=== PATIENT | female | born 1985 | race Caucasian/White ===

== ENCOUNTER 2017-10-20 14:15 | Emergency (ER) | payer MEDICARE, MEDICAID ==
[2017-10-20 15:36] LABS: #Basophils 0.1 thou/uL (0.0-0.2); #Eosinphils 0.1 thou/uL (0.0-0.7); #Lymphocytes 2.7 thou/uL (1.20-3.40); #Monocytes 0.3 thou/uL (0.11-0.59); #Neutrophils 5.2 thou/uL (1.40-6.50); %Basophils 1.3 % (0.0-1.0); %Eosinophils 1.5 % (0.0-10.0); %Monocytes 3.6 % (0.0-10.0); %Neutrophils 61.6 % (42.0-75.0); Mean Corpuscular HGB CONC 33.2 g/dL (32.0-36.0); Mean Corpuscular Hemoglobin 30.9 pg (27.0-31.0); Mean Corpuscular Volume 93.1 fl (81.0-99.0); Mean Platelet Volume 7.3 fL (7.4-10.4); Platelet Count 288 thou/uL (130-400); RBC Distribution Width 13.3 % (11.5-14.5); White Blood Cell (WBC) Count 8.5 thou/uL (4.8-10.8)
[2017-10-20 15:48] LABS: BHCG - Serum Negative (NEGATIVE); Pregs Control Background? CLEAR/WHITE (CLR/WHITE); Pregs Control Bar Appear? YES (CONTROL BAR)
== END 2017-10-20 16:10 | disposition home or self-care (01) ==
LOC: ERS 14:15
DX: N93.8 Other specified abnormal uterine and vaginal bleeding (principal); F31.9 Bipolar disorder, unspecified; F17.210 Nicotine dependence, cigarettes, uncomplicated; Z79.899 Other long term (current) drug therapy
CPT/HCPCS: 36415; 84703; 85025; 99284

== ENCOUNTER 2018-05-10 17:26 | Emergency (ER) | payer MEDICARE, MEDICAID ==
[2018-05-10 18:37] LABS: #Basophils 0.1 thou/uL (0.0-0.2); #Eosinphils 0.1 thou/uL (0.0-0.7); #Lymphocytes 3.1 thou/uL (1.20-3.40); #Monocytes 0.2 thou/uL (0.11-0.59); #Neutrophils 5.8 thou/uL (1.40-6.50); %Basophils 1.2 % (0.0-1.0); %Eosinophils 1.2 % (0.0-10.0); %Lymphocytes 32.9 % (21.0-51.0); %Monocytes 2.6 % (0.0-10.0); %Neutrophils 62.1 % (42.0-75.0); Hemoglobin 13.7 g/dL (12.0-16.0); Mean Corpuscular HGB CONC 34.6 g/dL (32.0-36.0); Mean Corpuscular Hemoglobin 31.7 pg (27.0-31.0); Mean Corpuscular Volume 91.7 fL (78.0-98.0); Platelet Count 362 thou/uL (130-400); RBC Distribution Width 13.2 % (11.5-14.5); Red Blood Cell (RBC) Count 4.33 mill/uL (4.20-5.40); White Blood Cell (WBC) Count 9.3 thou/uL (4.8-10.8)
[2018-05-10 18:59] LABS: ALT (SGPT) 7 U/L (8-55); AST (SGOT) 13 U/L (5-34); Albumin 4.2 g/dL (3.5-5.0); Alkaline Phosphatase 123 U/L (40-150); Anion Gap 11 mmol/L (10-20); BUN (Urea Nitrogen) 7 mg/dL (7.0-18.7); Bilirubin, Total 0.3 mg/dL (0.2-1.2); Calc. Creatinine Clearance 0 mL/min (70-130); Calcium 9.1 mg/dL (7.8-10.44); Carbon Dioxide 27 mmol/L (22-29); Chloride 102 mmol/L (98-107); Estimated GFR-MDRD 78; Globulin 3.3 g/dL (2.4-3.5); Glucose 79 mg/dL (70-105); Lipase 5 U/L (8-78); Potassium 4.1 mmol/L (3.5-5.1); Protein, Total 7.5 g/dL (6.0-8.3); Sodium 136 mmol/L (136-145)
[2018-05-10 21:38] LABS: Bilirubin Negative (Negative); Blood, Urine Negative (Negative); Clarity CLEAR (Clear); Glucose, Urine (Dipstick) Negative (Negative); Leukocyte Negative (Negative); Nitrite Negative (Negative); Protein, Urine (Dipstick) Negative (Neg-Trace); Urobilinogen 0.2 mg/dL (0.2-1.0); pH, Urine 6.5 (5.0-9.0)
[2018-05-10 21:39] LABS: Pregnancy Test - Urine (BHCG) Negative (Negative); Pregu Control Background? CLEAR/WHITE (CLR/WHITE); Pregu Control Bar Appear? YES (CONTROL BAR)
== END 2018-05-10 22:18 | disposition home or self-care (01) ==
LOC: ERS 17:26
DX: R10.9 Unspecified abdominal pain (principal); F31.9 Bipolar disorder, unspecified; F17.210 Nicotine dependence, cigarettes, uncomplicated; Z79.899 Other long term (current) drug therapy
CPT/HCPCS: 36415; 80053; 81003; 81025; 83690; 85025; 96360

== ENCOUNTER 2019-05-27 09:42 | Emergency (ER) | payer OTHER, MEDICAID ==
--- NOTE | 2019-05-27 10:22 | RAD ---
EXAM: Chest 2 views: HISTORY: Chest pain around the Mediport COMPARISON: None. FINDINGS: There is a normal-sized cardiomediastinal silhouette. The right sided Mediport is unchanged in posit ion. There is no evidence of consolidation, mass, or pleural effusion. The bones are unremarkable. IMPRESSION: No evidence of acute cardiopulmonary disease
--- NOTE | 2019-05-27 11:27 | ULT ---
EXAM: Right upper extremity venous ultrasound HISTORY: Right shoulder pain and heaviness at the area of a Mediport COMPARISON: None TECHNIQUE: Multiplanar grayscale and color Doppler images were obtained in a right upper extremity ve nous ultrasound. Spectral analysis of the Doppler waveforms were performed. FINDINGS: The internal jugular vein demonstrates normal compression and flow without evidence of thrombus. The subclavian vein demonstrates normal flow and augmentation without evidence of thrombus. The axillary and brachial veins demonstrate normal compression, flow, and augmentation without eviden ce of thrombus. The venous structures distal to the elbow are patent without thrombus. The cephalic and basilic veins are patent. IMPRESSION: No evidence of DVT.
== END 2019-05-27 11:55 | disposition home or self-care (01) ==
LOC: ERS 09:42
DX: R07.89 Other chest pain (principal); F31.9 Bipolar disorder, unspecified; F17.210 Nicotine dependence, cigarettes, uncomplicated; Z79.899 Other long term (current) drug therapy
CPT/HCPCS: 71046

== ENCOUNTER 2019-10-29 13:36 | Outpatient (CLI) | payer MEDICARE, MEDICAID | END 2019-10-29 13:37 | disposition home or self-care (01) | LOC: ULT 13:36 | PROVIDERS: ATTEND Family Medicine | DX: I50.20 Unspecified systolic (congestive) heart failure (principal); I08.1 Rheumatic disorders of both mitral and tricuspid valves | CPT/HCPCS: 93306 ==

== ENCOUNTER 2020-06-30 14:06 | Outpatient (CLI) | payer MEDICARE, MEDICAID ==
--- NOTE | 2020-06-30 14:39 | RAD ---
EXAM: 2 views of the lumbosacral spine HISTORY: Low back pain COMPARISON: None FINDINGS: 2 views of the lumbosacral spine shows normal height and alignment of the vertebral bodies and intervertebral discs without fracture or subluxation. No significant degenerative changes are seen. The sacroiliac joints are unremarkable. Surgical clips are seen anterior to the spine. IMPRESSION: No significant lumbar spine abnormality.
--- NOTE | 2020-06-30 15:23 | RAD ---
Exam: Cervical spine 3 views HISTORY: Neck pain. COMPARISON: None FINDINGS: AP view of the cervical spine demonstrate appropriate alignment. Swimmer's view demonstrates Limited evaluation of the cervicothoracic junction. On the lateral projec tion, no prevertebral soft tissue swelling. Predental space is normal. There is straightening of normal cervical lordosis. Cervical spine vertebral body heights are maintained. No fracture. No signi ficant loss of disc space height. IMPRESSION: No radiographic abnormalities. MRI of the cervical spine, if clinically warranted.
== END 2020-06-30 14:07 | disposition home or self-care (01) ==
LOC: BICRAD 14:06
PROVIDERS: ATTEND Family Medicine
DX: M54.2 Cervicalgia (principal); M54.5 Low back pain
CPT/HCPCS: 72040; 72100

== ENCOUNTER 2020-11-05 14:50 | Outpatient (CLI) | payer MEDICARE, MEDICAID | END 2020-11-05 14:51 | disposition home or self-care (01) | LOC: BICRAD 14:50 | PROVIDERS: ATTEND Family Medicine | DX: M25.562 Pain in left knee (principal) ==

== ENCOUNTER 2021-03-11 07:20 | Outpatient (CLI) | payer MEDICARE, MEDICAID | END 2021-03-11 07:21 | disposition home or self-care (01) | LOC: ULT 07:20 | PROVIDERS: ATTEND Allergy & Immunology | DX: R74.8 Abnormal levels of other serum enzymes (principal); Z90.49 Acquired absence of other specified parts of digestive tract | CPT/HCPCS: 76705 ==

== ENCOUNTER 2021-06-26 18:46 | Inpatient (IN) | payer MEDICARE, MEDICAID ==
[2021-06-26 19:46] LABS: %Neutrophils 82.4 % (42.0-75.0); Hemoglobin 12.4 g/dL (12.0-16.0); Mean Corpuscular HGB CONC 34.5 g/dL (32.0-36.0); Mean Corpuscular Hemoglobin 34.7 pg (27.0-31.0); Mean Platelet Volume 6.1 fL (7.4-10.4); Platelet Count 429 thou/uL (130-400); RBC Distribution Width 14.5 % (11.5-14.5); Red Blood Cell (RBC) Count 3.58 mill/uL (4.20-5.40); White Blood Cell (WBC) Count 14.7 thou/uL (4.8-10.8)
[2021-06-26 19:47] LABS: #Basophils 0.1 thou/uL (0.0-0.2); #Lymphocytes 2.3 thou/uL (1.20-3.40); #Monocytes 0.2 thou/uL (0.11-0.59); #Neutrophils 12.1 thou/uL (1.40-6.50); %Basophils 0.5 % (0.0-1.0); %Eosinophils 0.3 % (0.0-10.0); %Lymphocytes 15.4 % (21.0-51.0); %Monocytes 1.4 % (0.0-10.0)
[2021-06-26] MEDS ORDERED: cefTRIAXone\\ROCEPHIN 2 GM VIAL ONE (20:16)
[2021-06-26] MEDS ORDERED: Azithromycin 500 MG VIAL ONE (20:53)
[2021-06-26] MEDS ORDERED: Ondansetron ODT 4 MG TAB PO PRN (21:22)
[2021-06-26] MEDS ORDERED: Acetaminophen 650 MG Suppository PR PRN (21:22)
[2021-06-26] MEDS ORDERED: Acetaminophen 325 MG TAB PO PRN (21:22)
[2021-06-26] MEDS ORDERED: Ondansetron PF 4 MG/2 ML Vial IVP PRN (21:22)
[2021-06-26 22:03] LABS: ALT (SGPT) Less than 7 U/L (8-55); AST (SGOT) 8 U/L (5-34); Albumin 3.2 g/dL (3.5-5.0); Alkaline Phosphatase 177 U/L (40-110); Anion Gap 12 mmol/L (10-20); BUN (Urea Nitrogen) 6 mg/dL (7.0-18.7); Bilirubin, Total 0.2 mg/dL (0.2-1.2); Calc. Creatinine Clearance 0 mL/min (70-130); Calcium 8.1 mg/dL (7.8-10.44); Carbon Dioxide 24 mmol/L (22-29); Chloride 104 mmol/L (98-107); Globulin 2.2 g/dL (2.4-3.5); Glucose 130 mg/dL (70-105); Potassium 3.1 mmol/L (3.5-5.1); Protein, Total 5.4 g/dL (6.0-8.3); Sodium 137 mmol/L (136-145)
[2021-06-26 23:34] VITALS: BMI 23.2
[2021-06-27 07:44] LABS: #Basophils 0.1 thou/uL (0.0-0.2); #Eosinphils 0.1 thou/uL (0.0-0.7); #Monocytes 0.2 thou/uL (0.11-0.59); #Neutrophils 8.4 thou/uL (1.40-6.50); %Basophils 0.8 % (0.0-1.0); %Eosinophils 0.6 % (0.0-10.0); %Lymphocytes 25.3 % (21.0-51.0); %Monocytes 1.9 % (0.0-10.0); %Neutrophils 71.4 % (42.0-75.0); Hemoglobin 11.8 g/dL (12.0-16.0); Mean Corpuscular HGB CONC 33.8 g/dL (32.0-36.0); Mean Corpuscular Hemoglobin 34.3 pg (27.0-31.0); Mean Platelet Volume 6.7 fL (7.4-10.4); Platelet Count 362 thou/uL (130-400); RBC Distribution Width 14.5 % (11.5-14.5); Red Blood Cell (RBC) Count 3.43 mill/uL (4.20-5.40); White Blood Cell (WBC) Count 11.7 thou/uL (4.8-10.8)
[2021-06-27 08:04] LABS: Anion Gap 13 mmol/L (10-20); BUN (Urea Nitrogen) 5 mg/dL (7.0-18.7); Calc. Creatinine Clearance 121 mL/min (70-130); Calcium 8.4 mg/dL (7.8-10.44); Carbon Dioxide 26 mmol/L (22-29); Chloride 105 mmol/L (98-107); Glucose 87 mg/dL (70-105); Potassium 3.2 mmol/L (3.5-5.1); Sodium 141 mmol/L (136-145)
[2021-06-27] MEDS: Potassium Chloride 20 MEQ TAB PO SCH ×2 (11:05→11:10)
[2021-06-27] MEDS ORDERED: NS 0.9% w/ 40 MEQ KCL 1,000 ML IV SCH (11:15)
[2021-06-27 15:58] LABS: Strep pneumo Urine Ag NEGATIVE (NEGATIVE)
[2021-06-27 15:59] LABS: Legionella Urinary Ag Negative (Negative)
[2021-06-27 16:54] LABS: SARS-CoV-2 PCR by NAA Not Detected (NotDetected)
[2021-06-27 18:33] LABS: Immunoglob - A (Total IgA) Less than 5.00 mg/dL (65-421)
[2021-06-27] MEDS ORDERED: Azithromycin 500 MG in Sodium Chloride 0.9% 250 ML 250 ML IVPB SCH (20:00)
[2021-06-27] MEDS ORDERED: cefTRIAXone\\ROCEPHIN 1 GM in Sodium Chloride 0.9% 100 ML IVPB SCH (20:30)
[2021-06-27] MEDS ORDERED: FLU VACC QS2021-22(6MOS UP)/PF 60 MCG/0.5 ML SYRINGE IM ONE (23:45)
[2021-06-28 08:10] VITALS: BP 129/87; TEMP 97.9
[2021-06-28 10:56] LABS: #Basophils 0.1 thou/uL (0.0-0.2); #Eosinphils 0.3 thou/uL (0.0-0.7); #Lymphocytes 2.7 thou/uL (1.20-3.40); #Monocytes 0.1 thou/uL (0.11-0.59); %Basophils 0.8 % (0.0-1.0); %Eosinophils 2.9 % (0.0-10.0); %Lymphocytes 29.2 % (21.0-51.0); %Monocytes 1.3 % (0.0-10.0); %Neutrophils 65.7 % (42.0-75.0); Hemoglobin 10.5 g/dL (12.0-16.0); Mean Corpuscular HGB CONC 34.4 g/dL (32.0-36.0); Mean Corpuscular Hemoglobin 34.6 pg (27.0-31.0); Mean Platelet Volume 6.1 fL (7.4-10.4); Platelet Count 397 thou/uL (130-400); RBC Distribution Width 14.3 % (11.5-14.5); Red Blood Cell (RBC) Count 3.04 mill/uL (4.20-5.40); White Blood Cell (WBC) Count 9.1 thou/uL (4.8-10.8)
[2021-06-28] MEDS ORDERED: Benzonatate 100 MG CAP PO PRN (11:09)
[2021-06-30 00:12] LABS: Mycoplasma pneumoniae IgG AB 120 U/mL (0-99); Mycoplasma pneumoniae IgM AB Less than 770 U/mL (0-769)
== END 2021-06-28 12:43 | disposition home or self-care (01) | DRG 871 ==
LOC: ERS 18:46 → T4-B 20:56 → OBSVTOIN 06-27 11:25
PROVIDERS: ADMIT Student in an Organized Health Care Education/Training Program; ATTEND Internal Medicine
DX: A41.9 Sepsis, unspecified organism (principal); J18.9 Pneumonia, unspecified organism; K50.90 Crohn's disease, unspecified, without complications; D84.89 Other immunodeficiencies; F17.210 Nicotine dependence, cigarettes, uncomplicated; F31.9 Bipolar disorder, unspecified; E87.6 Hypokalemia; R91.1 Solitary pulmonary nodule; Z20.822 Contact with and (suspected) exposure to COVID-19; Z88.1 Allergy status to other antibiotic agents; Z88.2 Allergy status to sulfonamides; Z88.8 Allergy status to other drugs, medicaments and biological substances; Z79.899 Other long term (current) drug therapy; Z90.49 Acquired absence of other specified parts of digestive tract; Z98.51 Tubal ligation status
CPT/HCPCS: 36415; 71045; 71250; 80048; 80053; 83605; 83880; 84484; 85025; 85379; 87040; 87449; 87899; 90471; 90686; 93005; 93306; 96365; 96375; G0008; G0378; J0456; J0696; J3480; J3490; J7050; U0003; U0005

== ENCOUNTER 2021-07-26 17:44 | Emergency (ER) | payer MEDICARE, MEDICAID | END 2021-07-26 19:08 | disposition home or self-care (01) | LOC: ERS 17:44 | DX: S90.31XA Contusion of right foot, initial encounter (principal); W10.9XXA Fall (on) (from) unspecified stairs and steps, initial encounter; F17.210 Nicotine dependence, cigarettes, uncomplicated ==

== ENCOUNTER 2021-08-05 10:53 | Outpatient (CLI) | payer MEDICARE, MEDICAID | END 2021-08-05 10:54 | disposition home or self-care (01) | LOC: BICRAD 10:53 | PROVIDERS: ATTEND Family Medicine | DX: S99.921D Unspecified injury of right foot, subsequent encounter (principal); M79.671 Pain in right foot; S92.515A Nondisplaced fracture of proximal phalanx of left lesser toe(s), initial encounter for closed fracture ==

== ENCOUNTER 2021-08-14 03:10 | Observation (INO) | payer MEDICARE, MEDICAID ==
[2021-08-14] MEDS ORDERED: Morphine 4 MG/ML VIAL ONE ×2 (03:47→06:29)
[2021-08-14] MEDS ORDERED: Ondansetron PF 4 MG/2 ML Vial ONE (03:47)
[2021-08-14 04:18] LABS: ALT (SGPT) 15 U/L (8-55); AST (SGOT) 17 U/L (5-34); Albumin 4.5 g/dL (3.5-5.0); Alkaline Phosphatase 168 U/L (40-110); Anion Gap 16 mmol/L (10-20); BUN (Urea Nitrogen) 11 mg/dL (7.0-18.7); Bilirubin, Total 0.3 mg/dL (0.2-1.2); Calc. Creatinine Clearance 0 mL/min (70-130); Calcium 9.5 mg/dL (7.8-10.44); Carbon Dioxide 24 mmol/L (22-29); Chloride 99 mmol/L (98-107); Globulin 2.7 g/dL (2.4-3.5); Glucose 161 mg/dL (70-105); Lipase 11 U/L (8-78); Potassium 3.5 mmol/L (3.5-5.1); Protein, Total 7.2 g/dL (6.0-8.3); Sodium 135 mmol/L (136-145)
[2021-08-14 04:19] LABS: #Basophils 0.1 thou/uL (0.0-0.2); #Eosinphils 0.1 thou/uL (0.0-0.7); #Monocytes 0.2 thou/uL (0.11-0.59); %Basophils 0.5 % (0.0-1.0); %Eosinophils 0.4 % (0.0-10.0); %Lymphocytes 12.8 % (21.0-51.0); %Monocytes 1.2 % (0.0-10.0); %Neutrophils 85.1 % (42.0-75.0); Hemoglobin 13.2 g/dL (12.0-16.0); Mean Corpuscular HGB CONC 34.2 g/dL (32.0-36.0); Mean Corpuscular Hemoglobin 34.7 pg (27.0-31.0); Mean Platelet Volume 6.6 fL (7.4-10.4); Platelet Count 344 thou/uL (130-400); RBC Distribution Width 14.7 % (11.5-14.5); Red Blood Cell (RBC) Count 3.81 mill/uL (4.20-5.40); White Blood Cell (WBC) Count 15.3 thou/uL (4.8-10.8)
[2021-08-14] MEDS ORDERED: Piperacillin/Tazobactam 3.375 GM VIAL ONE (06:29)
[2021-08-14] MEDS ORDERED: HYDROcodone/Acetaminophen 5/325 mg Tablet PO PRN (08:20)
[2021-08-14] MEDS ORDERED: Senokot S 8.6-50 MG TAB PO PRN (08:20)
[2021-08-14] MEDS ORDERED: Ondansetron PF 4 MG/2 ML Vial IVP PRN ×2 (08:20→08:30)
[2021-08-14] MEDS ORDERED: Acetaminophen 325 MG TAB PO PRN (08:20)
[2021-08-14] MEDS ORDERED: Guaifenesin DM 100-10/5 ML UDCUP PO PRN (08:20)
[2021-08-14 08:27] VITALS: BMI 23.8
[2021-08-14] MEDS ORDERED: Ondansetron ODT 4 MG TAB SL PRN (08:30)
[2021-08-14] MEDS ORDERED: Sodium Chloride 0.9% 1,000 ML IV SCH (08:30)
[2021-08-14] MEDS: Enoxaparin Sodium 40 MG/0.4 ML SYRINGE SC SCH (09:19)
[2021-08-14] MEDS: Famotidine/PF 20 mg/2ml Vial SLOW IVP SCH ×2 (09:20→19:49)
[2021-08-14] MEDS: Sodium Chloride 0.9% 1,000 ML IV SCH ×2 (09:24→17:26)
[2021-08-14] MEDS ORDERED: Iopamidol-370 76% 500 ML 1 ML ONE (10:21)
[2021-08-14] MEDS ORDERED: Piperacillin/Tazobactam 3.375 GM in Sodium Chloride 0.9% 100 ML IVPB SCH (11:00)
[2021-08-14 15:11] LABS: Amphetamine Not Detected (NotDetected); Barbiturates Screen Not Detected (NotDetected); Benzodiazepine Screen Not Detected (NotDetected); Cocaine Metabolite Screen Not Detected (NotDetected); Methadone Not Detected (NotDetected); Methamphetamine Not Detected (NotDetected); Opiate Screen Detected (NotDetected); Oxycodone Screen Not Detected (NotDetected); Phencyclidine (PCP) Not Detected (NotDetected); THC/Cannabinoid Screen Detected (NotDetected); Tricyclic Screen Not Detected (NotDetected)
[2021-08-14] MEDS: metroNIDAZOLE 500 MG in Premix Bag 1 BAG IVPB SCH ×2 (16:43→22:15)
[2021-08-14 18:18] LABS: SARS-CoV-2 PCR by NAA Not Detected (NotDetected)
[2021-08-14] MEDS: lamoTRIgine 100 MG TAB PO SCH (19:48)
[2021-08-14] MEDS: Venlafaxine HCl XR 75 MG CAP PO SCH (19:49)
[2021-08-14] MEDS: Ketorolac Tromethamine 30 MG/ML VIAL IVP PRN (19:49)
[2021-08-15] MEDS: metroNIDAZOLE 500 MG in Premix Bag 1 BAG IVPB SCH ×3 (05:27→22:15)
[2021-08-15 05:41] LABS: #Basophils 0.1 thou/uL (0.0-0.2); #Lymphocytes 2.2 thou/uL (1.20-3.40); #Monocytes 0.3 thou/uL (0.11-0.59); #Neutrophils 11.5 thou/uL (1.40-6.50); %Basophils 0.6 % (0.0-1.0); %Eosinophils 0.2 % (0.0-10.0); %Lymphocytes 15.4 % (21.0-51.0); %Monocytes 2.3 % (0.0-10.0); %Neutrophils 81.5 % (42.0-75.0); Hemoglobin 12.1 g/dL (12.0-16.0); Mean Corpuscular HGB CONC 33.8 g/dL (32.0-36.0); Mean Corpuscular Hemoglobin 34.6 pg (27.0-31.0); Mean Platelet Volume 6.5 fL (7.4-10.4); Platelet Count 285 thou/uL (130-400); RBC Distribution Width 14.8 % (11.5-14.5); Red Blood Cell (RBC) Count 3.49 mill/uL (4.20-5.40); White Blood Cell (WBC) Count 14.1 thou/uL (4.8-10.8)
[2021-08-15 06:11] LABS: ALT (SGPT) 37 U/L (8-55); AST (SGOT) 64 U/L (5-34); Albumin 3.9 g/dL (3.5-5.0); Alkaline Phosphatase 161 U/L (40-110); Anion Gap 12 mmol/L (10-20); BUN (Urea Nitrogen) 8 mg/dL (7.0-18.7); Bilirubin, Total 0.6 mg/dL (0.2-1.2); Calc. Creatinine Clearance 109 mL/min (70-130); Calcium 9.1 mg/dL (7.8-10.44); Carbon Dioxide 25 mmol/L (22-29); Chloride 104 mmol/L (98-107); Globulin 2.1 g/dL (2.4-3.5); Glucose 109 mg/dL (70-105); Sodium 137 mmol/L (136-145)
[2021-08-15] MEDS: Enoxaparin Sodium 40 MG/0.4 ML SYRINGE SC SCH (08:31)
[2021-08-15] MEDS: Famotidine/PF 20 mg/2ml Vial SLOW IVP SCH ×2 (08:36→20:27)
[2021-08-15] MEDS: Ketorolac Tromethamine 30 MG/ML VIAL IVP PRN ×2 (08:37→20:27)
[2021-08-15] MEDS: Piperacillin/Tazobactam 3.375 GM in Sodium Chloride 0.9% 100 ML IVPB SCH ×2 (14:01→22:15)
[2021-08-15] MEDS: Venlafaxine HCl XR 75 MG CAP PO SCH (20:36)
[2021-08-15] MEDS: lamoTRIgine 100 MG TAB PO SCH (20:37)
[2021-08-16] MEDS: metroNIDAZOLE 500 MG in Premix Bag 1 BAG IVPB SCH (05:40)
[2021-08-16] MEDS: Piperacillin/Tazobactam 3.375 GM in Sodium Chloride 0.9% 100 ML IVPB SCH (05:40)
[2021-08-16 05:55] LABS: #Basophils 0.1 thou/uL (0.0-0.2); #Eosinphils 0.1 thou/uL (0.0-0.7); #Lymphocytes 3.1 thou/uL (1.20-3.40); #Monocytes 0.4 thou/uL (0.11-0.59); #Neutrophils 8.2 thou/uL (1.40-6.50); %Eosinophils 0.9 % (0.0-10.0); %Lymphocytes 25.9 % (21.0-51.0); %Monocytes 3.5 % (0.0-10.0); %Neutrophils 68.7 % (42.0-75.0); Hemoglobin 12.4 g/dL (12.0-16.0); Mean Corpuscular HGB CONC 33.6 g/dL (32.0-36.0); Mean Corpuscular Hemoglobin 34.3 pg (27.0-31.0); Mean Platelet Volume 7.2 fL (7.4-10.4); Platelet Count 247 thou/uL (130-400); RBC Distribution Width 14.7 % (11.5-14.5); Red Blood Cell (RBC) Count 3.63 mill/uL (4.20-5.40); White Blood Cell (WBC) Count 11.9 thou/uL (4.8-10.8)
[2021-08-16 06:20] LABS: Anion Gap 14 mmol/L (10-20); BUN (Urea Nitrogen) 11 mg/dL (7.0-18.7); Calc. Creatinine Clearance 109 mL/min (70-130); Calcium 8.8 mg/dL (7.8-10.44); Carbon Dioxide 23 mmol/L (22-29); Chloride 102 mmol/L (98-107); Glucose 80 mg/dL (70-105); Potassium 3.7 mmol/L (3.5-5.1); Sodium 135 mmol/L (136-145)
[2021-08-16] MEDS: Famotidine/PF 20 mg/2ml Vial SLOW IVP SCH (08:20)
[2021-08-16] MEDS: Enoxaparin Sodium 40 MG/0.4 ML SYRINGE SC SCH (08:23)
[2021-08-16 12:00] VITALS: BP 117/79; TEMP 97
== END 2021-08-16 17:09 | disposition home or self-care (01) ==
LOC: ERS 03:10 → MSONC 06:23
PROVIDERS: ADMIT Student in an Organized Health Care Education/Training Program; ATTEND Hospitalist
DX: K52.9 Noninfective gastroenteritis and colitis, unspecified (principal); F17.210 Nicotine dependence, cigarettes, uncomplicated; F31.9 Bipolar disorder, unspecified; E86.0 Dehydration; K21.9 Gastro-esophageal reflux disease without esophagitis; D83.9 Common variable immunodeficiency, unspecified; F12.10 Cannabis abuse, uncomplicated; Z79.899 Other long term (current) drug therapy; Z88.1 Allergy status to other antibiotic agents; Z88.2 Allergy status to sulfonamides; Z88.6 Allergy status to analgesic agent; Z90.5 Acquired absence of kidney; Z20.822 Contact with and (suspected) exposure to COVID-19
CPT/HCPCS: 71275; 74174; 80048; 80053 ×2; 80306; 83690; 85025 ×3; 93005; 96366 ×2; 96375; 96376 ×3; G0378 ×4; U0003; U0005; 36415; 96374; J1885; J2270; J2405; J2543; J3490; J7050; Q9967; S0028

== ENCOUNTER 2021-09-06 12:40 | Inpatient (IN) | payer MEDICARE, MEDICAID ==
[2021-09-06 14:36] LABS: #Basophils 0.1 thou/uL (0.0-0.2); #Eosinphils 0.1 thou/uL (0.0-0.7); #Lymphocytes 2.6 thou/uL (1.20-3.40); #Monocytes 0.3 thou/uL (0.11-0.59); #Neutrophils 8.4 thou/uL (1.40-6.50); %Basophils 0.6 % (0.0-1.0); %Eosinophils 0.6 % (0.0-10.0); %Lymphocytes 22.9 % (21.0-51.0); %Monocytes 2.3 % (0.0-10.0); %Neutrophils 73.5 % (42.0-75.0); Hemoglobin 13.9 g/dL (12.0-16.0); Mean Corpuscular HGB CONC 33.6 g/dL (32.0-36.0); Mean Corpuscular Hemoglobin 33.7 pg (27.0-31.0); Mean Platelet Volume 6.8 fL (7.4-10.4); Platelet Count 388 thou/uL (130-400); RBC Distribution Width 14.3 % (11.5-14.5); Red Blood Cell (RBC) Count 4.14 mill/uL (4.20-5.40); White Blood Cell (WBC) Count 11.4 thou/uL (4.8-10.8)
[2021-09-06 14:53] LABS: ALT (SGPT) 10 U/L (8-55); AST (SGOT) 18 U/L (5-34); Albumin 4.4 g/dL (3.5-5.0); Alkaline Phosphatase 169 U/L (40-110); Anion Gap 15 mmol/L (10-20); BUN (Urea Nitrogen) 5 mg/dL (7.0-18.7); Bilirubin, Total 0.3 mg/dL (0.2-1.2); CK (CPK) 141 U/L (29-168); Calc. Creatinine Clearance 0 mL/min (70-130); Calcium 9.6 mg/dL (7.8-10.44); Carbon Dioxide 24 mmol/L (22-29); Chloride 102 mmol/L (98-107); Globulin 2.4 g/dL (2.4-3.5); Glucose 99 mg/dL (70-105); Lipase 4 U/L (8-78); Potassium 4.4 mmol/L (3.5-5.1); Protein, Total 6.8 g/dL (6.0-8.3); Sodium 137 mmol/L (136-145)
[2021-09-06 15:33] LABS: CKMB 15.3 ng/mL (0-6.6)
[2021-09-06] MEDS ORDERED: Enoxaparin Sodium 40 MG/0.4 ML SYRINGE ONE (16:15)
[2021-09-06] MEDS ORDERED: Aspirin Chewable 81 MG TAB ONE (16:15)
[2021-09-06] MEDS ORDERED: Enoxaparin Sodium 30 MG/0.3 ML SYRINGE ONE (16:15)
[2021-09-06] MEDS ORDERED: Nitroglycerin 0.4 MG TAB (25 Tab Bottle) SL PRN (18:03)
[2021-09-06] MEDS ORDERED: Acetaminophen 325 MG TAB PO PRN (18:05)
[2021-09-06] MEDS ORDERED: Ondansetron ODT 4 MG TAB PO PRN (18:05)
[2021-09-06 19:01] LABS: Troponin I 1.012 ng/mL (< 0.028)
[2021-09-06] MEDS ORDERED: Nitroglycerin 2% Ointment 1 INCH/1 GM Packet ONE (19:11)
[2021-09-06 20:30] LABS: SARS-CoV-2 NAA Rapid Test Not Detected (NotDetected)
[2021-09-06 20:46] LABS: Troponin I 1.137 ng/mL (< 0.028)
[2021-09-06 21:55] VITALS: BMI 22.9
[2021-09-06] MEDS: Famotidine 20 MG TAB PO SCH (23:59)
[2021-09-07] MEDS ORDERED: Ketorolac Tromethamine 30 MG/ML VIAL IVP SCH (01:45)
[2021-09-07 05:07] LABS: #Basophils 0.1 thou/uL (0.0-0.2); #Eosinphils 0.1 thou/uL (0.0-0.7); #Lymphocytes 3.8 thou/uL (1.20-3.40); #Monocytes 0.4 thou/uL (0.11-0.59); #Neutrophils 6.4 thou/uL (1.40-6.50); %Basophils 0.5 % (0.0-1.0); %Eosinophils 1.3 % (0.0-10.0); %Lymphocytes 35.3 % (21.0-51.0); %Monocytes 3.9 % (0.0-10.0); %Neutrophils 59.1 % (42.0-75.0); Hemoglobin 13.6 g/dL (12.0-16.0); Mean Corpuscular HGB CONC 33.3 g/dL (32.0-36.0); Mean Corpuscular Hemoglobin 33.5 pg (27.0-31.0); Mean Platelet Volume 6.9 fL (7.4-10.4); Platelet Count 352 thou/uL (130-400); RBC Distribution Width 14.3 % (11.5-14.5); Red Blood Cell (RBC) Count 4.06 mill/uL (4.20-5.40); White Blood Cell (WBC) Count 10.7 thou/uL (4.8-10.8)
[2021-09-07 05:30] LABS: Anion Gap 11 mmol/L (10-20); BUN (Urea Nitrogen) 8 mg/dL (7.0-18.7); Calc. Creatinine Clearance 100 mL/min (70-130); Calcium 9.7 mg/dL (7.8-10.44); Carbon Dioxide 28 mmol/L (22-29); Cardiac Risk 3.9 (Less than 4.5); Chloride 103 mmol/L (98-107); Cholesterol 216 mg/dl (< 200 Desired); Glucose 100 mg/dL (70-105); HDL Cholesterol 56 mg/dL (>60 Neg Risk); LDL Cholesterol, Calculated 142 mg/dL; Potassium 3.7 mmol/L (3.5-5.1); Sodium 138 mmol/L (136-145); Triglycerides 88 mg/dL (Less than 150)
[2021-09-07 06:12] LABS: Acetaminophen Less than 6.0 mcg/mL (10.0-30.0); Alcohol Less than 10 mg/dL (Less than 10); Salicylate Less than 8.0 mg/dL (15.0-30.0)
[2021-09-07] MEDS: Nitroglycerin 2% Ointment 1 INCH/1 GM Packet TOP SCH ×4 (06:13→20:53)
[2021-09-07] MEDS ORDERED: Heparin 10,000 UNITS/ 10 ML VIAL SLOW IVP SCH (08:30)
[2021-09-07] MEDS ORDERED: Heparin 25,000 units/D5W 500 ML IVPB SCH (08:30)
[2021-09-07] MEDS ORDERED: Enoxaparin Sodium 60 MG/0.6 ML SYRINGE SC SCH (09:00)
[2021-09-07] MEDS: Famotidine 20 MG TAB PO SCH ×2 (09:52→20:52)
[2021-09-07] MEDS: Folic Acid 1 MG TAB PO SCH (09:52)
[2021-09-07] MEDS: Aspirin Chewable 81 MG TAB PO SCH (09:52)
[2021-09-07] MEDS: Thiamine 100 MG TAB PO SCH (09:53)
[2021-09-07 10:30] LABS: Hemoglobin 13.7 g/dL (12.0-16.0); Platelet Count 367 thou/uL (130-400)
[2021-09-07] MEDS ORDERED: Iopamidol 370 76% 100 ML VIAL ONE (12:19)
[2021-09-07] MEDS ORDERED: Communication Order-Pharmacy FS SCH (13:30)
[2021-09-07] MEDS ORDERED: Midazolam HCl 2 mg/2 ml Vial ONE (14:08)
[2021-09-07] MEDS ORDERED: Fentanyl 100 MCG/2 ML VIAL ONE (14:08)
[2021-09-07] MEDS ORDERED: Nitroglycerin 0.4 MG TAB (25 Tab Bottle) SL PRN (14:33)
[2021-09-07] MEDS ORDERED: Acetaminophen/Codeine 30-300mg Tablet PO PRN ×2 (14:33)
[2021-09-07] MEDS ORDERED: Sodium Chloride 0.9% 200 ML IV PRN (14:33)
[2021-09-07] MEDS ORDERED: Heparin 10,000 UNITS/ 10 ML VIAL ONE (14:36)
[2021-09-07] MEDS ORDERED: Clopidogrel Bisulfate 300 MG TAB PO SCH (14:45)
[2021-09-07] MEDS ORDERED: Sodium Chloride 0.9% 1,000 ML IV SCH (14:45)
[2021-09-07] MEDS: Sodium Chloride 0.9% 1,000 ML IV SCH ×2 (15:52→23:09)
[2021-09-07] MEDS: lamoTRIgine 100 MG TAB PO SCH (20:52)
[2021-09-07] MEDS: Venlafaxine HCl XR 75 MG CAP PO SCH (20:53)
[2021-09-08] MEDS ORDERED: Ketorolac Tromethamine 30 MG/ML VIAL IVP SCH (01:45)
[2021-09-08] MEDS: Nitroglycerin 2% Ointment 1 INCH/1 GM Packet TOP SCH ×3 (06:12→21:07)
[2021-09-08 08:56] LABS: #Basophils 0.1 thou/uL (0.0-0.2); #Eosinphils 0.2 thou/uL (0.0-0.7); #Monocytes 0.4 thou/uL (0.11-0.59); %Basophils 0.9 % (0.0-1.0); %Eosinophils 1.8 % (0.0-10.0); %Monocytes 4.3 % (0.0-10.0); %Neutrophils 57.8 % (42.0-75.0); Hemoglobin 12.2 g/dL (12.0-16.0); Mean Corpuscular HGB CONC 33.4 g/dL (32.0-36.0); Mean Corpuscular Hemoglobin 33.6 pg (27.0-31.0); Platelet Count 309 thou/uL (130-400); RBC Distribution Width 14.2 % (11.5-14.5); Red Blood Cell (RBC) Count 3.64 mill/uL (4.20-5.40); White Blood Cell (WBC) Count 8.6 thou/uL (4.8-10.8)
[2021-09-08] MEDS: Thiamine 100 MG TAB PO SCH (09:12)
[2021-09-08] MEDS: Folic Acid 1 MG TAB PO SCH (09:12)
[2021-09-08] MEDS: Aspirin Chewable 81 MG TAB PO SCH (09:12)
[2021-09-08] MEDS: Famotidine 20 MG TAB PO SCH ×2 (09:13→21:07)
[2021-09-08] MEDS: Clopidogrel Bisulfate 75 MG TAB PO SCH (09:13)
[2021-09-08] MEDS: Sodium Chloride 0.9% 1,000 ML IV SCH ×2 (09:13→21:09)
[2021-09-08 09:17] LABS: Anion Gap 9 mmol/L (10-20); BUN (Urea Nitrogen) 8 mg/dL (7.0-18.7); Calc. Creatinine Clearance 108 mL/min (70-130); Calcium 8.7 mg/dL (7.8-10.44); Carbon Dioxide 25 mmol/L (22-29); Chloride 107 mmol/L (98-107); Glucose 87 mg/dL (70-105); Potassium 3.9 mmol/L (3.5-5.1); Sodium 137 mmol/L (136-145)
[2021-09-08] MEDS ORDERED: Atorvastatin Calcium 20 MG TAB PO SCH (21:00)
[2021-09-08] MEDS: lamoTRIgine 100 MG TAB PO SCH (21:06)
[2021-09-08] MEDS: Venlafaxine HCl XR 75 MG CAP PO SCH (21:07)
[2021-09-09] MEDS: Sodium Chloride 0.9% 1,000 ML IV SCH ×2 (05:30→17:04)
[2021-09-09] MEDS: Nitroglycerin 2% Ointment 1 INCH/1 GM Packet TOP SCH ×2 (05:31→17:04)
[2021-09-09 09:06] LABS: #Eosinphils 0.2 thou/uL (0.0-0.7); #Monocytes 0.4 thou/uL (0.11-0.59); #Neutrophils 5.8 thou/uL (1.40-6.50); %Basophils 0.4 % (0.0-1.0); %Eosinophils 2.1 % (0.0-10.0); %Lymphocytes 31.8 % (21.0-51.0); %Neutrophils 61.8 % (42.0-75.0); Hemoglobin 11.7 g/dL (12.0-16.0); Mean Corpuscular HGB CONC 34.1 g/dL (32.0-36.0); Mean Corpuscular Hemoglobin 34.6 pg (27.0-31.0); Platelet Count 299 thou/uL (130-400); RBC Distribution Width 14.2 % (11.5-14.5); Red Blood Cell (RBC) Count 3.38 mill/uL (4.20-5.40); White Blood Cell (WBC) Count 9.4 thou/uL (4.8-10.8)
[2021-09-09 09:30] LABS: Anion Gap 13 mmol/L (10-20); BUN (Urea Nitrogen) 6 mg/dL (7.0-18.7); Calc. Creatinine Clearance 112 mL/min (70-130); Calcium 8.8 mg/dL (7.8-10.44); Carbon Dioxide 22 mmol/L (22-29); Chloride 107 mmol/L (98-107); Glucose 97 mg/dL (70-105); Potassium 3.9 mmol/L (3.5-5.1); Sodium 138 mmol/L (136-145)
[2021-09-09] MEDS: Famotidine 20 MG TAB PO SCH (09:50)
[2021-09-09] MEDS: Aspirin Chewable 81 MG TAB PO SCH (09:50)
[2021-09-09] MEDS: Thiamine 100 MG TAB PO SCH (09:50)
[2021-09-09] MEDS: Clopidogrel Bisulfate 75 MG TAB PO SCH (09:50)
[2021-09-09] MEDS: Folic Acid 1 MG TAB PO SCH (09:50)
[2021-09-09 17:03] VITALS: BP 102/65; TEMP 98
== END 2021-09-09 17:14 | disposition home or self-care (01) | DRG 280 ==
LOC: ERS 12:40 → 2NO 16:07 → OBSVTOIN 09-07 10:03
PROVIDERS: ADMIT Internal Medicine; ATTEND Hospitalist
PROC: 4A023N7 Measurement of Cardiac Sampling and Pressure, Left Heart, Percutaneous Approach (ICD-10-PCS; principal; 2021-09-07)
PROC: B2111ZZ Fluoroscopy of Multiple Coronary Arteries using Low Osmolar Contrast (ICD-10-PCS; 2021-09-07)
PROC: B2151ZZ Fluoroscopy of Left Heart using Low Osmolar Contrast (ICD-10-PCS; 2021-09-07)
DX: I21.4 Non-ST elevation (NSTEMI) myocardial infarction (principal); I25.42 Coronary artery dissection; K51.90 Ulcerative colitis, unspecified, without complications; F31.9 Bipolar disorder, unspecified; F17.210 Nicotine dependence, cigarettes, uncomplicated; I25.10 Atherosclerotic heart disease of native coronary artery without angina pectoris; Z20.822 Contact with and (suspected) exposure to COVID-19; Z88.1 Allergy status to other antibiotic agents; Z88.2 Allergy status to sulfonamides; Z88.8 Allergy status to other drugs, medicaments and biological substances; Z79.899 Other long term (current) drug therapy; Z90.49 Acquired absence of other specified parts of digestive tract; Z98.51 Tubal ligation status
CPT/HCPCS: 36415; 71045; 80048; 80053; 80061; 80307; 82550; 82553; 83690; 83735; 84443; 84484; 85025; 85347; 85379; 85730; 93005; 93306; 93458; 94760; 96372; 96374; 99152; G0378; J1644; J1650; J1885; J2250; J3010; J7050; Q0162; Q9967; U0002

== ENCOUNTER 2022-01-11 10:18 | Outpatient (CLI) | payer MEDICARE, MEDICAID | END 2022-01-11 10:19 | disposition home or self-care (01) | LOC: TBSIIMAG 10:18 | PROVIDERS: ATTEND Family Medicine | DX: M23.92 Unspecified internal derangement of left knee (principal); M23.042 Cystic meniscus, anterior horn of lateral meniscus, left knee; M25.862 Other specified joint disorders, left knee ==

== ENCOUNTER 2022-04-25 09:56 | Outpatient (CLI) | payer MEDICARE, MEDICAID ==
[2022-04-25 11:14] LABS: Prothrombin Time 10.9 sec (9.5-12.1)
[2022-04-25 11:15] LABS: Anion Gap 13 mmol/L (10-20); BUN (Urea Nitrogen) 7 mg/dL (7.0-18.7); Calc. Creatinine Clearance 0 mL/min (70-130); Calcium 9.4 mg/dL (7.8-10.44); Carbon Dioxide 29 mmol/L (22-29); Chloride 100 mmol/L (98-107); Estimated GFR 98; Glucose 82 mg/dL (70-105); Potassium 3.6 mmol/L (3.5-5.1); Sodium 138 mmol/L (136-145)
[2022-04-25 11:19] LABS: #Eosinphils 0.1 10x3/uL (0.0-0.5); #Monocytes 0.2 10x3/uL (0.0-1.1); #Neutrophils 5.2 10x3/uL (1.5-8.4); %Basophils 0.5 % (0.0-2.0); %Eosinophils 1.3 % (0.0-6.0); %Lymphocytes 33.7 % (18.0-47.0); %Monocytes 2.6 % (0.0-10.0); %Neutrophils 60.7 % (40.0-75.0); Hemoglobin 12.9 g/dL (12.0-15.5); Mean Corpuscular HGB CONC 33.7 g/dL (32.0-36.0); Mean Corpuscular Hemoglobin 31.2 pg (27.0-33.0); Mean Corpuscular Volume 92.7 fl (81.6-98.3); Mean Platelet Volume 9.1 fl (7.4-10.4); Platelet Count 339 10x3/uL (150-450); RBC Distribution Width 15.2 % (11.5-14.5); Red Blood Cell (RBC) Count 4.13 10x6/uL (3.90-5.03); White Blood Cell (WBC) Count 8.6 10x3/uL (3.5-10.5)
== END 2022-04-25 09:57 | disposition home or self-care (01) ==
LOC: LABBT 09:56
PROVIDERS: ATTEND Orthopaedic Surgery
DX: Z01.812 Encounter for preprocedural laboratory examination (principal); M23.007 Cystic meniscus, unspecified meniscus, left knee; Z20.822 Contact with and (suspected) exposure to COVID-19
CPT/HCPCS: 80048; 85025; 85610; 87811

== ENCOUNTER 2022-12-31 10:49 | Emergency (ER) | payer MEDICARE, MEDICAID ==
[2022-12-31 13:16] LABS: #Basophils 0.1 thou/uL (0.0-0.2); #Eosinphils 0.1 thou/uL (0.0-0.7); #Lymphocytes 2.2 thou/uL (1.20-3.40); #Monocytes 0.2 thou/uL (0.11-0.59); #Neutrophils 3.9 thou/uL (1.40-6.50); %Basophils 1.1 % (0.0-1.0); %Lymphocytes 34.1 % (21.0-51.0); %Monocytes 2.5 % (0.0-10.0); %Neutrophils 61.3 % (42.0-75.0); Hemoglobin 12.9 g/dL (12.0-16.0); Mean Corpuscular HGB CONC 34.8 g/dL (32.0-36.0); Mean Corpuscular Hemoglobin 34.5 pg (27.0-31.0); Mean Corpuscular Volume 98.9 fl (78.0-98.0); Mean Platelet Volume 7.2 fL (7.4-10.4); Platelet Count 315 10x3/uL (130-400); RBC Distribution Width 12.8 % (11.5-14.5); Red Blood Cell (RBC) Count 3.74 mill/uL (4.20-5.40); White Blood Cell (WBC) Count 6.4 10x3/uL (4.8-10.8)
[2022-12-31 13:30] LABS: BHCG - Serum Negative (NEGATIVE); Pregs Control Background? CLEAR/WHITE (CLR/WHITE); Pregs Control Bar Appear? YES (CONTROL BAR)
[2022-12-31 13:50] LABS: ALT (SGPT) 9 U/L (8-55); AST (SGOT) 15 U/L (5-34); Albumin 3.6 g/dL (3.5-5.0); Alkaline Phosphatase 150 U/L (40-110); Anion Gap 11 mmol/L (10-20); BUN (Urea Nitrogen) 7 mg/dL (7.0-18.7); Bilirubin, Total 0.3 mg/dL (0.2-1.2); Calc. Creatinine Clearance 0 mL/min (70-130); Calcium 8.5 mg/dL (7.8-10.44); Carbon Dioxide 24 mmol/L (22-29); Chloride 104 mmol/L (98-107); Estimated GFR 104; Globulin 3.8 g/dL (2.4-3.5); Glucose 89 mg/dL (70-105); Lipase 11 U/L (8-78); Potassium 4.3 mmol/L (3.5-5.1); Protein, Total 7.4 g/dL (6.0-8.3); Sodium 135 mmol/L (136-145)
[2022-12-31] MEDS ORDERED: Ketorolac Tromethamine 30 MG/ML VIAL ONE (13:58)
== END 2022-12-31 15:16 | disposition home or self-care (01) ==
LOC: ERS 10:49
DX: M79.662 Pain in left lower leg (principal); M62.838 Other muscle spasm; Z87.891 Personal history of nicotine dependence
CPT/HCPCS: 71045; 80053; 83690; 83880; 84484; 84703; 85025; 93005; 96372; J1885

== ENCOUNTER 2023-03-13 20:06 | Emergency (ER) | payer MEDICARE, MEDICAID ==
[2023-03-13 21:09] LABS: #Eosinphils 0.1 thou/uL (0.0-0.7); #Monocytes 0.2 thou/uL (0.11-0.59); #Neutrophils 5.4 thou/uL (1.40-6.50); %Basophils 0.5 % (0.0-1.0); %Eosinophils 0.8 % (0.0-10.0); %Lymphocytes 32.4 % (21.0-51.0); %Monocytes 2.6 % (0.0-10.0); %Neutrophils 62.9 % (42.0-75.0); Hemoglobin 12.5 g/dL (12.0-16.0); Mean Corpuscular HGB CONC 33.7 g/dL (32.0-36.0); Mean Corpuscular Hemoglobin 32.9 pg (27.0-31.0); Mean Corpuscular Volume 97.6 fl (78.0-98.0); Mean Platelet Volume 9.3 fL (7.4-10.4); Platelet Count 334 10x3/uL (130-400); White Blood Cell (WBC) Count 8.6 10x3/uL (4.8-10.8)
[2023-03-13 21:32] LABS: ALT (SGPT) 13 U/L (8-55); AST (SGOT) 18 U/L (5-34); Albumin 3.9 g/dL (3.5-5.0); Alkaline Phosphatase 165 U/L (40-110); Anion Gap 13 mmol/L (10-20); BUN (Urea Nitrogen) 9 mg/dL (7.0-18.7); Bilirubin, Total 0.2 mg/dL (0.2-1.2); Calc. Creatinine Clearance 0 mL/min (70-130); Calcium 9.1 mg/dL (7.8-10.44); Carbon Dioxide 26 mmol/L (22-29); Chloride 100 mmol/L (98-107); Estimated GFR 91; Globulin 3.7 g/dL (2.4-3.5); Glucose 107 mg/dL (70-105); Potassium 3.6 mmol/L (3.5-5.1); Protein, Total 7.6 g/dL (6.0-8.3); Sodium 135 mmol/L (136-145)
[2023-03-14] MEDS ORDERED: Mag-Al 1200 mg/1200 mg/30 ML UDCUP ONE (00:18)
[2023-03-14] MEDS ORDERED: Aspirin 325 MG TAB ONE (00:18)
[2023-03-14] MEDS ORDERED: Acetaminophen 500 MG TAB ONE (00:18)
== END 2023-03-14 02:02 | disposition home or self-care (01) ==
LOC: ERS 20:06
DX: R07.89 Other chest pain (principal)
CPT/HCPCS: 36415; 71045; 80053; 84484; 85025; 93005; 94760

== ENCOUNTER 2023-07-17 07:52 | Outpatient (CLI) | payer MEDICARE, MEDICAID | END 2023-07-17 07:53 | disposition home or self-care (01) | LOC: ULT 07:52 | PROVIDERS: ATTEND Family Medicine | DX: N83.291 Other ovarian cyst, right side (principal) | CPT/HCPCS: 76856 ==

== ENCOUNTER 2023-07-20 07:27 | Outpatient (CLI) | payer MEDICARE, MEDICAID | END 2023-07-20 07:28 | disposition home or self-care (01) | LOC: SCSMRI 07:27 | PROVIDERS: ATTEND Family Medicine | DX: D35.2 Benign neoplasm of pituitary gland (principal); E23.6 Other disorders of pituitary gland | CPT/HCPCS: 70553 ==

== ENCOUNTER 2023-08-21 08:59 | Outpatient (CLI) | payer MEDICARE | END 2023-08-21 09:00 | disposition home or self-care (01) | LOC: ULT 08:59 | PROVIDERS: ATTEND Family Medicine | DX: R74.8 Abnormal levels of other serum enzymes (principal) | CPT/HCPCS: 76705 ==

== ENCOUNTER 2024-02-25 18:34 | Inpatient (IN) | payer MEDICARE, MEDICAID ==
[~2024-02-25 18:34] MED LIST: Iopamidol 370 76% 100 ML VIAL ONE
[2024-02-25 19:02] LABS: #Basophils 0.03 10x3/uL (0.0-0.2); %Basophils 0.4 % (0.0-1.0); %Lymphocytes 41.7 % (21.0-51.0); %Monocytes 3.1 % (0.0-10.0); %Neutrophils 53.3 % (42.0-75.0); Hematocrit 40.3 % (36.0-47.0); Mean Corpuscular HGB CONC 34.7 g/dL (32.0-36.0); Mean Corpuscular Hemoglobin 31.7 pg (27.0-31.0); Mean Corpuscular Volume 91.2 fL (78.0-98.0); Mean Platelet Volume 9.5 fL (7.4-10.4); Platelet Count 335 10x3/uL (130-400); RBC Distribution Width 13.6 % (11.5-14.5); Red Blood Cell (RBC) Count 4.42 mill/uL (4.20-5.40)
[2024-02-25 19:10] LABS: BHCG - Serum Negative (NEGATIVE); Pregs Control Background? CLEAR/WHITE (CLR/WHITE); Pregs Control Bar Appear? YES (CONTROL BAR)
[2024-02-25 19:18] LABS: ALT (SGPT) 16 U/L (8-55); AST (SGOT) 22 U/L (5-34); Albumin 3.6 g/dL (3.5-5.0); Alkaline Phosphatase 145 U/L (40-110); Anion Gap 16 mmol/L (10-20); BUN (Urea Nitrogen) 8 mg/dL (7.0-18.7); Bilirubin, Total 0.3 mg/dL (0.2-1.2); Calc. Creatinine Clearance 0 mL/min (70-130); Calcium 8.8 mg/dL (7.8-10.44); Carbon Dioxide 21 mmol/L (22-29); Chloride 104 mmol/L (98-107); Estimated GFR 89; Globulin 4.2 g/dL (2.4-3.5); Glucose 101 mg/dL (70-105); Lipase 14 U/L (8-78); Potassium 3.7 mmol/L (3.5-5.1); Protein, Total 7.8 g/dL (6.0-8.3); Sodium 137 mmol/L (136-145)
[2024-02-25 19:21] LABS: Troponin I Less than 0.010 ng/mL (< 0.028)
[2024-02-25 19:40] LABS: PTT 25.7 sec (22.9-36.1); Prothrombin Time 13.3 sec (12.0-14.7)
[2024-02-25] MEDS ORDERED: Aspirin Chewable 81 MG TAB ONE (19:40)
[2024-02-25] MEDS ORDERED: Ondansetron ODT 4 MG TAB SL PRN (21:00)
[2024-02-25] MEDS ORDERED: Ondansetron PF 4 MG/2 ML Vial IVP PRN (21:00)
[2024-02-25] MEDS ORDERED: hydrALAZINE 20 MG/ML VIAL SLOW IVP PRN (21:22)
[2024-02-25] MEDS ORDERED: Acetaminophen 650 MG Suppository PR PRN (21:22)
[2024-02-26 03:46] VITALS: BMI 24.8
[2024-02-26 05:12] LABS: #Basophils 0.03 10x3/uL (0.0-0.2); %Basophils 0.4 % (0.0-1.0); %Eosinophils 1.1 % (0.0-10.0); %Monocytes 3.1 % (0.0-10.0); Hemoglobin 12.5 g/dL (12.0-16.0); Mean Corpuscular HGB CONC 33.8 g/dL (32.0-36.0); Mean Corpuscular Hemoglobin 31.8 pg (27.0-31.0); Mean Corpuscular Volume 94.1 fL (78.0-98.0); Mean Platelet Volume 9.7 fL (7.4-10.4); Platelet Count 294 10x3/uL (130-400); Red Blood Cell (RBC) Count 3.93 mill/uL (4.20-5.40)
[2024-02-26 05:26] LABS: Hemoglobin A1c 4.5 % (4.0-6.0)
[2024-02-26 05:38] LABS: Anion Gap 11 mmol/L (10-20); BUN (Urea Nitrogen) 7 mg/dL (7.0-18.7); Calc. Creatinine Clearance 99 mL/min (70-130); Calcium 8.4 mg/dL (7.8-10.44); Carbon Dioxide 26 mmol/L (22-29); Cardiac Risk 4.8 (Less than 4.5); Chloride 107 mmol/L (98-107); Cholesterol 163 mg/dl (< 200 Desired); Estimated GFR 105; Glucose 92 mg/dL (70-105); HDL Cholesterol 34 mg/dL (>60 Neg Risk); LDL Cholesterol, Calculated 106 mg/dL; Potassium 3.8 mmol/L (3.5-5.1); Sodium 140 mmol/L (136-145); Triglycerides 115 mg/dL (Less than 150)
[2024-02-26] MEDS ORDERED: Aspirin 325 MG TAB ONE (08:52)
[2024-02-26] MEDS: Aspirin 325 MG TAB PO SCH (09:40)
[2024-02-26] MEDS ORDERED: Clopidogrel Bisulfate 75 MG TAB ONE (13:28)
[2024-02-26] MEDS: Clopidogrel Bisulfate 75 MG TAB PO SCH (13:31)
[2024-02-26 15:00] LABS: PTT 25.1 sec (22.9-36.1); Prothrombin Time 13.5 sec (12.0-14.7)
[2024-02-26 15:02] LABS: D-Dimer Test 0.27 mcg/mL (0.27-0.43)
[2024-02-27] MEDS: Acetaminophen 325 MG TAB PO PRN (07:38)
[2024-02-27] MEDS: Clopidogrel Bisulfate 75 MG TAB PO SCH (08:34)
[2024-02-27 12:39] VITALS: BP 108/72; TEMP 98.7
[2024-02-27 12:49] LABS: Cardiolipin IgA Ab Less than 0.3 APL-U/mL (<14 Negative); Cardiolipin IgG Ab 4.7 GPL-U/mL (<10 Negative); Cardiolipin IgM Ab Less than 0.9 MPL-U/mL (<10 Negative); EliA APS New Method **** NEW METHOD ****
[2024-02-27] MEDS ORDERED: Atorvastatin Calcium 40 MG TAB PO SCH (21:00)
== END 2024-02-27 13:30 | disposition home or self-care (01) | DRG 65 ==
LOC: ERS 18:34 → ERHOLD 20:39 → 2SE 02-26 13:41
PROVIDERS: ADMIT Student in an Organized Health Care Education/Training Program; ATTEND Internal Medicine
DX: I63.9 Cerebral infarction, unspecified (principal); D83.9 Common variable immunodeficiency, unspecified; G81.94 Hemiplegia, unspecified affecting left nondominant side; I25.10 Atherosclerotic heart disease of native coronary artery without angina pectoris; E78.5 Hyperlipidemia, unspecified; Z88.2 Allergy status to sulfonamides; Z88.8 Allergy status to other drugs, medicaments and biological substances; Z79.899 Other long term (current) drug therapy; Z79.82 Long term (current) use of aspirin; Z98.51 Tubal ligation status; Z98.890 Other specified postprocedural states; Z90.49 Acquired absence of other specified parts of digestive tract; I25.2 Old myocardial infarction
CPT/HCPCS: 0042T; 36415; 36416; 70450; 70496; 70498; 70551; 71045; 80048; 80053; 80061; 83036; 83090; 83690; 84443; 84484; 84703; 85025; 85300; 85303; 85305; 85307; 85598; 85610; 85730; 86147; 93005; 93010; 93306; 94760; Q9967

== ENCOUNTER 2024-03-12 12:33 | Day surgery (SDC) | payer MEDICARE, MEDICAID ==
[~2024-03-12 12:33] MED LIST changes: +ADMIXTURE FEE IVPB SCH; +EPINEPHrine 1 MG/ML AMP IM PRN; +GAMMAGARD IVPB SCH; +IMMUNE GLOBULIN IVPB SCH; -Iopamidol 370 76% 100 ML VIAL ONE; +Privigen 40 GM, Privigen 10 GM in Admixture Fee 1 EACH IVPB SCH; +Sodium Chloride 0.9% 1,000 ML IV PRN; +Sodium Chloride 0.9% 1,000 ML IV SCH; +Sodium Chloride 0.9% 500 ML IV PRN; +diphenhydrAMINE 50 MG/ML VIAL IVP PRN
[2024-03-12] MEDS ORDERED: EPINEPHrine 1 MG/ML AMP IM PRN (12:41)
[2024-03-12] MEDS ORDERED: Sodium Chloride 0.9% 1,000 ML IV PRN (12:41)
[2024-03-12] MEDS ORDERED: diphenhydrAMINE 50 MG/ML VIAL ONE (12:58)
[2024-03-12] MEDS: Sodium Chloride 0.9% 1,000 ML IV SCH (12:59)
[2024-03-12] MEDS: diphenhydrAMINE 50 MG/ML VIAL IVP PRN (13:00)
[2024-03-12] MEDS: IMMUNE GLOBULIN IVPB SCH (13:21)
[2024-03-12] MEDS: GAMMAGARD IVPB SCH (13:21)
[2024-03-12] MEDS: ADMIXTURE FEE IVPB SCH (13:21)
[2024-03-12 18:03] VITALS: BP 105/55; TEMP 98.7
== END 2024-03-12 18:04 | disposition home or self-care (01) ==
LOC: ONC/OP 12:33
PROVIDERS: ATTEND Allergy & Immunology
DX: D83.9 Common variable immunodeficiency, unspecified (principal)
CPT/HCPCS: 96365; 96366; J1200; J1569 ×2; J1642

== ENCOUNTER 2024-05-30 08:54 | Day surgery (SDC) | payer MEDICARE, MEDICAID ==
[~2024-05-30 08:54] MED LIST changes: -ADMIXTURE FEE IVPB SCH; +EPINEPHrine 1 MG/ML VIAL IJ PRN; -GAMMAGARD IVPB SCH; -IMMUNE GLOBULIN IVPB SCH; -Privigen 40 GM, Privigen 10 GM in Admixture Fee 1 EACH IVPB SCH; -Sodium Chloride 0.9% 500 ML IV PRN
[2024-05-30 09:42] LABS: #Basophils 0.04 10x3/uL (0.0-0.2); %Basophils 0.5 % (0.0-1.0); %Eosinophils 1.1 % (0.0-10.0); %Lymphocytes 26.9 % (21.0-51.0); %Monocytes 2.4 % (0.0-10.0); %Neutrophils 68.4 % (42.0-75.0); Hematocrit 36.1 % (36.0-47.0); Mean Corpuscular HGB CONC 33.2 g/dL (32.0-36.0); Mean Corpuscular Hemoglobin 31.7 pg (27.0-31.0); Mean Corpuscular Volume 95.3 fL (78.0-98.0); Mean Platelet Volume 9.8 fL (7.4-10.4); Platelet Count 266 10x3/uL (130-400); RBC Distribution Width 14.3 % (11.5-14.5); Red Blood Cell (RBC) Count 3.79 mill/uL (4.20-5.40)
[2024-05-30] MEDS: Privigen 40 GM, Privigen 10 GM in Admixture Fee 1 EACH IVPB SCH (10:04)
[2024-05-30 15:04] VITALS: BP 99/62; TEMP 97.9
== END 2024-05-30 14:58 | disposition home or self-care (01) ==
LOC: ONC/OP 08:54
PROVIDERS: ATTEND Allergy & Immunology
DX: D83.9 Common variable immunodeficiency, unspecified (principal); Z88.2 Allergy status to sulfonamides; Z88.1 Allergy status to other antibiotic agents; Z88.6 Allergy status to analgesic agent
CPT/HCPCS: 82784; 85025; 96365; 96366; J1459 ×2; J1642

== ENCOUNTER 2024-06-27 08:37 | Day surgery (SDC) | payer MEDICARE, MEDICAID ==
[~2024-06-27 08:37] MED LIST changes: -EPINEPHrine 1 MG/ML VIAL IJ PRN; -Sodium Chloride 0.9% 1,000 ML IV SCH
[2024-06-27] MEDS: Sodium Chloride 0.9% 1,000 ML IV SCH (08:53)
[2024-06-27] MEDS: Privigen 40 GM, Privigen 10 GM in Admixture Fee 1 EACH IVPB SCH (09:15)
[2024-06-27 15:16] VITALS: BP 110/53; TEMP 98.1
== END 2024-06-27 15:16 | disposition home or self-care (01) ==
LOC: ONC/OP 08:37
PROVIDERS: ATTEND Allergy & Immunology
DX: D83.9 Common variable immunodeficiency, unspecified (principal); K21.9 Gastro-esophageal reflux disease without esophagitis; Z88.2 Allergy status to sulfonamides; Z88.1 Allergy status to other antibiotic agents; Z88.6 Allergy status to analgesic agent
CPT/HCPCS: 96361; 96365; 96366; J1459 ×2; J1642

== ENCOUNTER 2024-07-17 09:19 | Day surgery (SDC) | payer MEDICAID, MEDICARE ==
[2024-07-17] MEDS ORDERED: EPINEPHrine 1 MG/ML VIAL IJ SCH (09:30)
[2024-07-17] MEDS ORDERED: diphenhydrAMINE 50 MG/ML VIAL IVP SCH (09:30)
[2024-07-17] MEDS: Sodium Chloride 0.9% 500 ML IV SCH (09:50)
[2024-07-17] MEDS: PRIVIGEN IVPB SCH (10:21)
[2024-07-17] MEDS: ADMIXTURE FEE IVPB SCH (10:21)
[2024-07-17 13:35] VITALS: BP 102/59; TEMP 98.1
== END 2024-07-17 15:31 | disposition home or self-care (01) ==
LOC: ONC/OP 09:19
PROVIDERS: ATTEND Allergy & Immunology
DX: D83.9 Common variable immunodeficiency, unspecified (principal); Z88.1 Allergy status to other antibiotic agents; Z88.2 Allergy status to sulfonamides; Z88.6 Allergy status to analgesic agent
CPT/HCPCS: 96365; 96366; J1459 ×2; J1642

== ENCOUNTER 2024-08-07 09:29 | Day surgery (SDC) | payer MEDICARE ==
[2024-08-07] MEDS: Sodium Chloride 0.9% 500 ML IV SCH (09:58)
[2024-08-07] MEDS ORDERED: diphenhydrAMINE 50 MG/ML VIAL IVP SCH (10:00)
[2024-08-07] MEDS ORDERED: diphenhydrAMINE 50 MG/ML VIAL IVP PRN (10:00)
[2024-08-07] MEDS ORDERED: EPINEPHrine 1 MG/ML VIAL IJ SCH (10:00)
[2024-08-07] MEDS ORDERED: EPINEPHrine 1 MG/ML VIAL IJ PRN (10:01)
[2024-08-07] MEDS ORDERED: Sodium Chloride 0.9% 500 ML IV PRN (10:02)
[2024-08-07 10:22] LABS: #Basophils 0.04 10x3/uL (0.0-0.2); %Basophils 0.5 % (0.0-1.0); %Eosinophils 0.9 % (0.0-10.0); %Lymphocytes 28.4 % (21.0-51.0); %Monocytes 3.1 % (0.0-10.0); %Neutrophils 66.3 % (42.0-75.0); Hematocrit 36.3 % (36.0-47.0); Hemoglobin 12.2 g/dL (12.0-16.0); Mean Corpuscular HGB CONC 33.6 g/dL (32.0-36.0); Mean Corpuscular Hemoglobin 31.8 pg (27.0-31.0); Mean Corpuscular Volume 94.5 fL (78.0-98.0); Mean Platelet Volume 9.7 fL (7.4-10.4); Platelet Count 339 10x3/uL (130-400); RBC Distribution Width 15.6 % (11.5-14.5); Red Blood Cell (RBC) Count 3.84 mill/uL (4.20-5.40)
[2024-08-07] MEDS: ADMIXTURE FEE IVPB SCH (11:05)
[2024-08-07] MEDS: PRIVIGEN IVPB SCH (11:05)
[2024-08-07 15:54] VITALS: BP 106/66; TEMP 97.7
== END 2024-08-07 15:54 | disposition home or self-care (01) ==
LOC: ONC/OP 09:29
PROVIDERS: ATTEND Allergy & Immunology
DX: D83.9 Common variable immunodeficiency, unspecified (principal); Z88.1 Allergy status to other antibiotic agents; Z88.2 Allergy status to sulfonamides; Z88.6 Allergy status to analgesic agent
CPT/HCPCS: 36591; 82784; 85025; 96365; 96366; J1459 ×2; J1642

== ENCOUNTER 2025-04-26 08:41 | Emergency (ER) | payer MEDICARE ==
[2025-04-26 09:35] LABS: #Basophils 0.03 10x3/uL (0.0-0.2); #Eosinophils 0.08 10x3/uL (0.0-0.7); #Monocytes 0.19 10x3/uL (0.11-0.59); #Neutrophils 6.67 10x3/uL (1.40-6.50); %Basophils 0.3 % (0.0-1.0); %Eosinophils 0.8 % (0.0-10.0); %Lymphocytes 25.6 % (21.0-51.0); %Monocytes 2.0 % (0.0-10.0); %Neutrophils 70.2 % (42.0-75.0); Hematocrit 33.1 % (36.0-47.0); Hemoglobin 11.4 g/dL (12.0-16.0); Mean Corpuscular Hemoglobin 33.7 pg (27.0-31.0); Mean Corpuscular Volume 97.9 fL (78.0-98.0); Platelet Count 328 10x3/uL (130-400); Red Blood Cell (RBC) Count 3.38 mill/uL (4.20-5.40); White Blood Cell (WBC) Count 9.50 10x3/uL (4.8-10.8)
[2025-04-26 09:51] LABS: ALT (SGPT) Less than 7 U/L (Less than 34); AST (SGOT) 15 U/L (11-34); Albumin 3.3 g/dL (3.1-4.5); Alkaline Phosphatase 146 U/L (40-110); Anion Gap 11 mmol/L (10-20); BUN (Urea Nitrogen) 8 mg/dL (7.0-18.7); Bilirubin, Total 0.3 mg/dL (0.3-1.2); Calc. Creatinine Clearance 0 mL/min (70-130); Calcium 8.3 mg/dL (7.8-10.44); Carbon Dioxide 25 mmol/L (22-29); Chloride 103 mmol/L (98-107); Globulin 2.7 g/dL (2.4-3.5); Glucose 73 mg/dL (70-105); Potassium 3.1 mmol/L (3.5-5.1); Sodium 136 mmol/L (136-145)
[2025-04-26] MEDS ORDERED: Acetaminophen 500 MG TAB ONE (09:59)
[2025-04-26] MEDS ORDERED: Ondansetron PF 4 MG/2 ML Vial ONE (09:59)
[2025-04-26] MEDS ORDERED: Iopamidol 370 76% 100 ML VIAL ONE (10:22)
== END 2025-04-26 11:19 | disposition home or self-care (01) ==
LOC: ERS 08:41
DX: R07.9 Chest pain, unspecified (principal); K51.90 Ulcerative colitis, unspecified, without complications; R29.700 NIHSS score 0
CPT/HCPCS: 71275; 74174; 80053; 84484; 85025; 86850; 86900; 86901; 93005; 96361; 96374; 99285; J2405; Q9967; 36415